=== PATIENT | female | born 1985 | race Caucasian/White ===

== ENCOUNTER 2020-07-08 14:40 | Emergency (ER) | payer BC, SELFPAY ==
--- NOTE | ~2020-07-08 | CT_ITS ---
EXAMINATION: CT abdomen pelvis w con DATE: 07/08/2020 16:15 INDICATION: Mid abdominal pain TECHNIQUE: Computed tomography (CT) of the abdomen and pelvis was performed with 100 mL Omnipaque-350 intravenous contrast. Automated exposure control and iterative reconstruction technique were employe d. The dose-length product was 313.71 mGy-cm. COMPARISON: None FINDINGS: Lung bases are clear. Heart size is normal. No pericardial or pleural effusion. Liver, gallbladder, s pleen, pancreas, bilateral adrenal glands and left kidney are normal. 3 small region of cortical scar ring at the upper pole of the right kidney. No bowel obstruction. Normal appendix. Diffuse fatty infi ltration of the colonic wall likely related to body habitus. Bladder and retroverted uterus are pamela l. Several subcentimeter low-attenuation cysts/follicles at both ovaries. No free intraperitoneal gas or fluid. No pathologically enlarged abdominal or pelvic lymphadenopathy. Very small fat-containing umbilical hernia. Small fat-containing right inguinal hernia. Bones are unremarkable. IMPRESSION: 1. No acute intra-abdominal/pelvic process. 2. Very small fat-containing umbilical and small fat-containing right inguinal hernias. Reviewed, dictated and finalized at location A.
[2020-07-08 14:44] VITALS: BP 128/91; PULSE 106; RESP 20; O2SAT 100
[2020-07-08] MEDS: SODIUM CHLORIDE 0.9% IV 1,000 ML 999 ML IV CONT (15:18)
[2020-07-08 15:21] LABS: Basophils Absolute Auto 0.1 K/mm3 (0.0-0.1); Eosinophils Absolute Auto 0.1 K/mm3 (0-0.3); Eosinophils Percent Auto 2.1 % (0-4.4); Hematocrit 41.2 % (37.0-47.0); Hemoglobin 14.1 g/dL (12.0-15.0); Immature Granulocyte Absolute 0.01 K/mm3 (0.00-0.031); Immature Granulocyte Percent A 0.2 % (0-0.5); Lymphocytes Absolute Auto 2.26 K/mm3 (0.9-3.2); Lymphocytes Percent Auto 39.2 % (18.3-44.2); Mean Corpuscular HGB Conc 34.2 g/dl (32-36); Mean Corpuscular Hemoglobin 33.7 pg (26-34); Mean Corpuscular Volume 98.6 fl (80-100); Mean Platelet Volume 9.8 fl (7.4-10.4); Monocytes Absolute Auto 0.5 K/mm3 (0.1-0.6); Neutrophils Absolute Auto 2.9 K/mm3 (1.3-6.7); Neutrophils Percent Auto 49.5 % (45.5-73.1); Platelet Count Result 233 k/mm3 (150-375); Red Blood Count 4.18 M/mm3 (4.2-5.4); Red Cell Distribution Width 13.6 % (11.5-14.5); White Blood Count 5.8 K/mm3 (4.5-10.0)
[2020-07-08 15:23] LABS: Add Urine Microscopic? NO; Appearance Urine Clear (Clear); Bilirubin Urine Negative (Negative); Blood Urine Negative (Negative); Color Urine Colorless (Yellow); Glucose Urine UA Negative (Negative); Ketones Urine Negative (Negative); Leukocyte Esterase Ur Negative LEU/UL (Negative); Nitrate Urine Negative (Negative); Protein Urine Negative (Negative); Urobilinogen Urine Negative mg/dL (<2.0)
[2020-07-08 15:26] VITALS: BP 104/77; PULSE 74
[2020-07-08 15:27] LABS: Specific Grav Ur 1.002 (1.001-1.035)
[2020-07-08 15:29] VITALS: BP 111/84; PULSE 75
[2020-07-08 15:30] VITALS: BP 113/91; PULSE 91
--- NOTE | 2020-07-08 16:17 | PC.NURSE ---
Patient's green top needed redraw.
[2020-07-08 16:30] LABS: Potassium 3.9 mmol/L (3.4-5.0)
[2020-07-08 16:35] LABS: Alanine Aminotransferase 30 U/L (4-35); Albumin Level 4.4 g/dL (3.5-5.1); Alkaline Phosphatase 64 U/L (38-126); Anion Gap 8 mmol/L (8-16); Aspartate Amino Transferase 44 U/L (14-36); Bilirubin,Total 0.5 mg/dL (0.2-1.3); Blood Urea Nitrogen 7 mg/dL (7-17); Calcium 8.8 mg/dL (8.4-10.2); Carbon Dioxide 27 mmol/L (22-30); Chloride 109 mmol/L (98-107); Estimated CRCL calculation 89 ml/min; Estimated Glomerular Filt Rate > 60; Glucose 84 mg/dL (65-105); Lipase 128 U/L (23-300); Sodium 144 mmol/L (137-145)
--- NOTE | 2020-07-08 16:43 | ED.GENADULT ---
HPI - General Adult General Chief complaint: Nausea/Vomiting/Diarrhea Stated complaint: abd pain, diarrhea Time Seen by Provider: 07/08/20 14:50 Source: patient and family Mode of arrival: ambulatory Limitations: no limitations History of Present Illness HPI narrative: 34-year-old with a history of anxiety disorder here with complaints of having diarrhea for last 3 months. Patient states that she has been using the toilet every 20 minutes. She denies any fever or chills. No history of blood in the stool. She states that she is having a upper abdominal pain. She has never evaluated for diarrhea. No recent antibiotic. No blood in the stool. Onset (ago): month(s) (3 months) Radiation: non-radiation Related Data Allergies Allergy/AdvReac Type Severity Reaction Status Date / Time No Known Allergies Allergy Verified 07/08/20 14:47 Review of Systems Review of Systems: All systems reviewed & are unremarkable except as noted in HPI and below Constitutional: Constitutional: Reports no additional constitutional complaints Eyes: Eyes: Reports no additional eye complaints ENT: Reports system reviewed and no additional complaints, except as documented Cardiovascular: Cardiovascular: Reports no additional cardiovascular complaints Respiratory: Respiratory: Reports no additional respiratory complaints Gastrointestinal: Gastrointestinal: Reports as per HPI Musculoskeletal: Musculoskeletal: Reports no additional musculoskeletal complaints Neurologic: Reports system reviewed and no additional complaints, except as documented Psychiatric: Psychiatric: Reports as per HPI [facility] Family History Family History Father Alive and well Mother Alive and well Social History Social History Smoking packs per day: 1 Smoking cigarettes per day: 20.0 Years smoked: 16 Smoking pack-years: 16.00 Smoking status: Current every day smoker Exam Narrative: Exam Narrative: GENERAL: Well-appearing, well-nourished, and in no acute distress. Anxious HEAD: Normocephalic, atraumatic. EYES: PERRLA and EOMI. ENT: Nares clear, no rhinorrhea or epistaxis. Mucous membranes moist. NECK: Supple. CHEST: Clear to auscultation. No respiratory distress. HEART: Regular rate and rhythm. No murmur heard. Normal peripheral pulses. ABDOMEN: Soft, tender in the upper abdomen and more on the right side, nondistended, normal active bowel sounds. EXTREMITIES: Normal range of motion. No edema. SKIN: Warm, dry, no rash. NEURO: No focal deficits. Alert and oriented x3. PSYCH: Anxious Course Course Emergency Course: Patient seemed to be extremely anxious she repeatedly asking to know whether she is dying. I did explain to her that her lab work and CT was normal she is having more anxiety spells which is causing her to have diarrhea. Advised her to follow-up with her primary doctor. Vital Signs Vital signs: Vital Signs Pulse Rate 106 H 07/08/20 14:44 Respiratory Rate 20 07/08/20 14:44 Blood Pressure 128/91 H 07/08/20 14:44 Pulse Oximetry 100 07/08/20 14:44 Pulse Rate 91 07/08/20 15:30 Respiratory Rate 20 07/08/20 14:44 Blood Pressure 113/91 H 07/08/20 15:30 Pulse Oximetry 100 07/08/20 14:44 Medical Decision Making Vital Signs Vital Signs: Vital Signs Pulse Rate 106 H 07/08/20 14:44 Respiratory Rate 20 07/08/20 14:44 Blood Pressure 128/91 H 07/08/20 14:44 Pulse Oximetry 100 07/08/20 14:44 Pulse Rate 91 07/08/20 15:30 Respiratory Rate 20 07/08/20 14:44 Blood Pressure 113/91 H 07/08/20 15:30 Pulse Oximetry 100 07/08/20 14:44 Lab Data Result diagrams: 07/08/20 15:11 07/08/20 16:16 Labs: Lab Results 07/08/20 07/08/20 07/08/20 Range/Units 15:11 15:12 16:16 WBC 5.8 (4.5-10.0) K/mm3 RBC 4.18 L (4.2-5.4) M/mm3 Hgb 14.1 (12.0-15.0)
[2020-07-08 16:56] VITALS: BP 125/86; PULSE 81; RESP 20; O2SAT 100
[2020-07-08 18:43] LABS: Estimated CRCL calculation 64 ml/min; Estimated Glomerular Filt Rate > 60
== END 2020-07-08 16:58 | disposition home or self-care (01) ==
PROVIDERS: Emergency Provider Family Medicine; PCP Physician Assistant
DX: F41.9 Anxiety disorder, unspecified (principal); R19.7 Diarrhea, unspecified; F17.210 Nicotine dependence, cigarettes, uncomplicated; K42.9 Umbilical hernia without obstruction or gangrene; K40.90 Unilateral inguinal hernia, without obstruction or gangrene, not specified as recurrent
CPT/HCPCS: 36415; 74177; 80053; 81003; 81025; 83690; 85025; 96360; 99284; J7030; Q9967

== ENCOUNTER 2021-09-03 12:07 | Emergency (ER) | payer OTHER, SELFPAY ==
--- NOTE | 2021-09-03 12:08 | ED.URI ---
HPI - URI/Sore Throat General Chief Complaint: Upper Respiratory Infection Stated Complaint: Chest Cong[place]in/Cough/Sore Throat Time Seen by Provider: 09/03/21 12:08 Source: patient Mode of arrival: ambulatory Limitations: no limitations History of Present Illness HPI Narrative: Ms. Blackwell is a 36-year-old female patient presenting to the clinic today with complaints of cough, chest congestion, and sore throat x1 day. She reports her symptoms just began yesterday. She reports some shortness of breath and pain with coughing. States that she is bringing up some mucus but is swallowing it. She denies any fever or chills. She denies any known exposure to anybody with COVID, flu, or strep Related Data Allergies Allergy/AdvReac Type Severity Reaction Status Date / Time No Known Allergies Allergy Verified 09/03/21 12:18 Review of Systems Review of Systems: Pertinent positives per HPI. Patient denies any fever, chills, rash, headache, visual changes, dizziness, shortness of breath, chest pain, palpitations, nausea, vomiting, diarrhea, constipation, abdominal pain, or any urinary issues. PMFSH Family History Family History Mother Patient's mother is in good health Father Patient's father is in good health Father Alive and well Mother Alive and well Mother Depression Social History Social History Smoking packs per day: 1 Smoking cigarettes per day: 20.0 Years smoked: 16 Smoking pack-years: 16.00 Smoking status: Current every day smoker Second hand tobacco smoke exposure: No Smoking end date: 03/09/11 Alcohol intake: current Comments At the time of my signature, I reviewed and agree with the nursing past medical, surgical, social, and family history. There is no relevant family history pertinent to the patient complaint. Exam Narrative: General: Well-developed, well nourished, in no apparent distress Head: Normocephalic, atraumatic Eyes: Pupils equally round and reactive to light bilaterally, EOM intact, sclera and conjunctive clear, no discharge, lids normal Ears: TMs intact and clear, ear canals clear, no drainage, grossly hearing normal. Nose: Nares patent, clear nasal discharge, no inflammation, no sinus tenderness. Mouth: Oropharynx without lesions or masses, good dentition, MMM. Oropharynx red, postnasal Neck: Supple, trachea midline, no enlargement of anterior or posterior cervical nodes, no thyroid masses or goiter palpable. Cardio: Regular rate and rhythm, s1 and s2 normal, no murmur appreciated. Resp: Very faint wheezing to the posterior lung bases, no rhonchi, rales, or rubs Course Course Emergency Course: Portions of this record may have been created with voice recognition software. Level of Care: Express Care Visit Vital Signs Vital signs: Vital signs reviewed MDM - URI/Sore Throat MDM Narrative Medical decision making narrative: At the time of assessment patient was resting comfortably on the exam table. COVID and strep testing completed in the clinic. COVID and strep testing negative in the clinic. I suspect the patient has bronchitis. We will give a prescription for some prednisone and an albuterol inhaler. Supportive measures were discussed with the patient and she voiced understanding of discharge instructions and agrees to treatment plan. Differential Diagnosis Differential diagnosis: Likely upper respiratory infection, sinusitis, viral infection, bronchitis, influenza, pharyngitis and other (COVID) Discharge Plan Discharge Clinical Impression: Bronchitis Patient Disposition: Home, Self-Care Condition: Stable Instructions: Antibiotic Form, Acute Bronchitis (ED) Additional Instructions: Take prescription medications only as prescribed-prednisone and albuterol inhaler as directed Increase fluids and stay well hydrated Misaelen
[2021-09-03 12:13] VITALS: BP 120/77; PULSE 113; RESP 16; TEMP 37.7; O2SAT 100
[2021-09-03 12:19] VITALS: BP 120/77; PULSE 113; RESP 16; TEMP 37.7; O2SAT 100
== END 2021-09-03 12:47 | disposition home or self-care (01) ==
PROVIDERS: Emergency Provider Nurse Practitioner Family; PCP Nurse Practitioner Family
DX: J40 Bronchitis, not specified as acute or chronic (principal); Z20.822 Contact with and (suspected) exposure to COVID-19; Z87.891 Personal history of nicotine dependence; F41.9 Anxiety disorder, unspecified; F32.A Depression, unspecified
CPT/HCPCS: 87081; 87426; 87880; 99213; C9803; G0463

== ENCOUNTER 2022-04-28 16:16 | Emergency (ER) | payer OTHER, SELFPAY ==
[2022-04-28 16:22] VITALS: BP 124/81; PULSE 96; RESP 18; TEMP 36.7; O2SAT 100
[2022-04-28 16:30] VITALS: BP 124/81; PULSE 96; RESP 18; TEMP 36.7; O2SAT 100
--- NOTE | 2022-04-28 16:35 | ED.BURNSMOKE ---
HPI - Burn/Smoke Inhalation General Chief complaint: Burn/Smoke Inhalation Stated complaint: Burn on Feet Source: patient and RN notes reviewed History of Present Illness HPI Narrative: 36-year-old female presents urgent care with complaints of wounds to bilateral dorsal feet. Patient states 1 week ago she was at work when boiling water fell onto her feet while she was wearing tennis shoes and socks. Patient states that she was seen by her primary care physician on Thursday and was given Silvadene at that time. The patient presents today with open wounds to both dorsal feet with increased swelling and redness. Patient denies any fevers or chills. Patient is other complaints. Some parts of this dictation were generated by voice recognition software and may contain typographical and/or grammatical inaccuracies. Related Data Home Medications Medication Instructions Recorded Confirmed clonazepam 0.5 mg tablet 0.5 mg PO DIRECTED 04/28/22 04/28/22 sertraline 50 mg tablet 50 mg PO DIRECTED 04/28/22 04/28/22 silver sulfadiazine 1 % topical 1 applic topical BID 04/28/22 04/28/22 cream Allergies Allergy/AdvReac Type Severity Reaction Status Date / Time No Known Allergies Allergy Verified 04/28/22 16:28 Review of Systems Review of Systems: CONSTITUTIONAL: Denies fever, chills, or sweats. EYES: Denies visual changes, redness, or discharge. ENT: Denies otalgia and sore throat CARDIOVASCULAR: Denies chest pain, palpitations, or edema. RESPIRATORY: Denies cough or dyspnea. GASTROINTESTINAL: Denies abdominal pain, nausea, vomiting, or diarrhea. GENITOURINARY: Denies dysuria or hematuria. SKIN: Wounds to both feet MUSCULOSKELETAL: Denies back pain, joint pain, or myalgia. NEUROLOGIC: Denies headache, numbness, or weakness. [facility] Family History Family History Mother Patient's mother is in good health Father Patient's father is in good health Father Alive and well Mother Alive and well Mother Depression Social History Social History Smoking packs per day: 1 Smoking cigarettes per day: 20.0 Years smoked: 16 Smoking pack-years: 16.00 Smoking status: Current every day smoker Second hand tobacco smoke exposure: No Smoking end date: 03/09/11 Alcohol intake: current Comments At the time of my signature, I reviewed and agree with the nursing past medical, surgical, social, and family history. There is no relevant family history pertinent to the patient complaint. Exam Narrative: GENERAL: This is a well-nourished, well-developed patient, in no apparent distress. HEAD: normocephalic, atraumatic. EYES: PERRL. Sclera clear/white. Vision is grossly intact. EARS: External ears normal, auditory canals clear and without drainage, TMs normal without perforation. Hearing grossly intact. NOSE: External nose normal with no obvious nasal discharge, nares without redness, no rhinorrhea. THROAT: Mucous membranes moist, posterior pharynx clear. NECK: Neck supple, non-tender without lymphadenopathy, masses or thyromegaly. CARDIOVASCULAR: Regular rate and rhythm without murmurs, gallops, or rubs. RESPIRATORY: Clear to auscultation. Breath sounds equal bilaterally. No wheezes, rales, or rhonchi. GASTROINTESTINAL: Abdomen soft, non-tender, nondistended. Bowel sounds are active. No hepato-splenomegaly, or palpable masses. No guarding. SKIN: 2.5 cm area of open wound to right dorsal foot with approximately 4 cm of erythrema surrounding the wound with swelling. Left dorsal foot has noted dime size open wound with minimal erythema surrounding it. NEURO: awake, alert, and oriented to person, place and time. There were no obvious focal neurologic abnormalities. EXTREMITIES: No clubbing, cyanosis, or edema. No joint tenderness or effusion. Course Course Level of Care: Express Care Visit Vital Signs Vit
== END 2022-04-28 16:42 | disposition home or self-care (01) ==
PROVIDERS: Emergency Provider Nurse Practitioner Family
DX: L03.116 Cellulitis of left lower limb (principal); L03.115 Cellulitis of right lower limb; Z87.891 Personal history of nicotine dependence; F41.9 Anxiety disorder, unspecified; F32.A Depression, unspecified
CPT/HCPCS: 99213; G0463